=== PATIENT | female | born 1985 | race Caucasian/White ===

== ENCOUNTER 2016-11-18 20:43 | Emergency (ER) | payer OTHER ==
[~2016-11-18] VITALS: Ht 144.8 cm; Wt 70.3 kg
[2016-11-18 20:55] VITALS: BP_SYST 103
--- NOTE | 2016-11-18 21:19 | NUR ---
Patient to ER CHAIR to obey for evaluation. Report given to MICHELE LEWIS.
--- NOTE | 2016-11-18 21:28 | NUR ---
Patient to ER C/O severe acid reflux causing pain "up my chest" Patient states that she is waiting to see a Director Of Engineering in December for more testing. Patient also states that she usualy has the pain under control but believes that she mixed up her omeprazole with either codeine or norco and that's when the pain ans acid intensified. Also states that she had couple episodes of nausea and vomiting today. denies diarrhea or constipation. AAOx4, unlabored breathing, no signs of acute distress.
[2016-11-18] MEDS ORDERED: MAG HYDROX/AL HYDROX/SIMETH 30 ML, BELLADONNA ALKALOIDS/PHENOBARB 10 ML, LIDOCAINE VISC... PO ONE ×3 (21:30)
[2016-11-18 22:34] VITALS: BP_SYST 114
--- NOTE | 2016-11-18 22:34 | NUR ---
Patient given written and verbal discharge instructions and verbalizes understanding. ER [employer] Priscilla BAUTISTA discussed with patient the results and treatment provided. Patient in stable condition. ID arm band removed. Rx of ranitidine given. Patient educated on pain management and to follow up with PMD. Pain Scale 0/10. Opportunity for questions provided and answered.
--- NOTE | 2016-11-18 23:24 | NUR ---
ER MD Herman at bedside for evaluation
== END 2016-11-18 23:24 | disposition home or self-care (01) ==
LOC: SED 20:43
DX: K21.9 Gastro-esophageal reflux disease without esophagitis (principal); R06.02 Shortness of breath; R53.1 Weakness
CPT/HCPCS: 81025; 99282; J2001